=== PATIENT | female | born 1950 | race Caucasian/White ===

== ENCOUNTER 2018-06-09 07:32 | Inpatient (IN) ==
[2018-06-09] MEDS ORDERED: Chlorhexidine Gluconate 2% 1 Pack (2 Cloths) TOPICAL SCH (08:30)
[2018-06-09] MEDS ORDERED: Metoprolol Tartrate 25 MG Tablet PO SCH (08:30)
[2018-06-09] MEDS ORDERED: Lidocaine PF 1% Inj 5 ML Vial ONE (08:42)
[2018-06-09] MEDS ORDERED: Bupivacaine Liposomal PF 1.3% Inj 20 ML Vial ONE (08:42)
[2018-06-09] MEDS ORDERED: Chlorhexidine 4% Topical 120 APPLIC/120 ML Bottle TOPICAL SCH (08:45)
[2018-06-09] MEDS ORDERED: Sodium Chlor 0.9% Inj 80 ML, Bupivacaine Liposo PF 1.3% Inj 20 ML P-ARTICULR SCH ×2 (08:45)
[2018-06-09] MEDS ORDERED: TRANEXAMIC ACID IV.SIG SCH ×2 (09:00→11:35)
[2018-06-09] MEDS ORDERED: SODIUM CHLOR 0.9% IV.SIG SCH ×2 (09:00→11:35)
[2018-06-09] MEDS ORDERED: ceFAZolin 2 GM/NS 100 ML IV; Q8H IV.SIG SCH ×2 (09:00)
[2018-06-09] MEDS ORDERED: Sodium Chlor 0.9% Inj 500 ML IV.SIG SCH (09:00)
[2018-06-09] MEDS ORDERED: Propofol Inj 500 MG/50 ML Vial ONE (09:32)
[2018-06-09] MEDS ORDERED: Bupivacaine/Dextrose 0.75% Inj 2 ML Ampul ONE (09:32)
[2018-06-09] MEDS ORDERED: ceFAZolin 2 GM Premix Inj 2 GM/100 ML BAG IV.SIG ONE (09:57)
[2018-06-09] MEDS ORDERED: Tranexamic Acid Inj 0 MG in Sodium Chlor 0.9% Inj 100 ML IV.SIG ONE (10:17)
[2018-06-09] MEDS ORDERED: Bisacodyl 10 MG Supp RECTAL PRN (10:17)
[2018-06-09] MEDS ORDERED: Zolpidem Tartrate 5 MG Tablet PO PRN (10:17)
[2018-06-09] MEDS ORDERED: Post-op Orders (for Pharmacy) OTHER STA (10:17)
[2018-06-09] MEDS ORDERED: Morphine Inj 4 MG/ML Vial IV.PUSH PRN (10:17)
[2018-06-09] MEDS ORDERED: Aluminum/Magnesium/Simethacone Susp 30 ML UDC PO PRN (10:17)
[2018-06-09] MEDS ORDERED: Acetaminophen 325 MG Tablet PO PRN (10:17)
[2018-06-09] MEDS ORDERED: Sodium Chlor 0.9% Inj 250 ML IV.SIG ONE (12:00)
[2018-06-09] MEDS ORDERED: Phenylephrine/NS 1000 MCG/10ML Syringe IV.PUSH ONE (12:00)
--- NOTE | 2018-06-09 12:07 | P.DCO ---
- Physical Therapy Physical Therapy: Gait training Knee: Total knee, Protocol: Right, Gait training, Full weight bearing Right Lower Extremity Weight Bearing: Weight bearing as tolerated Right Lower Extremity Range of Motion: Active ROM (Active, active assisted and passive range of motion. Range of motion goal is 0 extension to 140 of flexion. Range of motion achieved in the operating room was 0 extension to 150 of flexion.) - Nursing Nursing: Dressing changes Dressing changes: Daily dressing change, Coverderm/Primapore Additional instructions: Do not remove Dermabond Prineo. - Certification Need for Home Health services: I have seen patient Nkechi Alexander on 06/09/18. My clinical findings support the need for the requested home health care services because: Need for Home Health Services: Deconditioned with increased weakness, Limited ability to care for self, High risk of falls Homebound Certification: I certify that my clinical findings support that this patient is homebound because: Homebound Certification: Post-op weakness, Unsteady gait/balance, Unsafe to leave home unassisted
--- NOTE | 2018-06-09 12:15 | P.OP ---
- Preoperative Diagnosis (1) Primary osteoarthritis of right knee - Postoperative Diagnosis (1) Primary osteoarthritis of right knee Date of procedure: 06/09/18 Procedure: Right total knee arthroplasty using Temi Triathlon prosthesis (uncemented). Anesthesia: regional (Adductor canal block), local (With Exparel), spinal Surgeon: Gabino Camacho MD Traffic Coordinator: RENARD Quintero Estimated blood loss (mL): 150 Tourniquet time (min): 0 Pathology: other (Synovial hypertrophy, suprapatellar pouch) Operation and Findings: Indications and Findings: This 67-year-old woman has at least 16 years history of right knee pain progressively worsening since arthroscopic surgery performed in [place] in 2002. This is worsened over time to the point that she is able to walk about 30 minutes in the groceries store only if she is leaning on the cart. She has difficulty ascending and descending stairs and has difficulty standing from position. He has not responded to conservative measures including analgesics, anti-inflammatory agents, activity modification, exercise , intra-articular corticosteroid injections and ambulatory aids. Physical findings showed significant crepitation on range of motion with palpable osteophytes, tenderness on motion and laxity in the joint. X-ray showed severe arthritis down to [id number] in the PA flexion view in both the medial and lateral compartments predominantly on the medial. There were patellofemoral osteophytes as well as medial and lateral osteophytes. Operative findings: There is severe osteoarthritis in the right knee with loss of articular cartilage to eburnated subchondral bone particularly in the medial compartment but also in the lateral and patellofemoral compartments. There are osteophytes. The synovium was hypertrophic in the suprapatellar pouch and medial lateral gutters. There is also some calcific change consistent with chondrocalcinosis. The prosthesis used was a Temi Triathlon prosthesis. The femur was a size 3, cruciate retaining, uncemented. The tibial baseplate was a size 3 Tritanium with a 9 mm X3 polyethylene cruciate retaining spacer. The patella was a size 32 mm asymmetric Tritanium backed. The patient was brought to the clean-air operating suite after administration of a regional anesthetic by adductor canal block. A spinal anesthetic was administered. The position was supine with a small bolster under the hip on the operative side. A pneumatic tourniquet was applied to the upper thigh. The lower extremity was prepped with alcohol, Hibiclens and ChloraPrep and draped in the usual manner with the knee draped free. An appropriate timeout procedure was carried out. An incision was made from about 3 fingerbreadths above the superior medial pole of patella down the tibial tubercle on the medial side. The incision was deepened through the subcutaneous tissue to the retinacular structures which were exposed medially and laterally. A medial retinacular incision was made from the superior medial pole of patella down the tibial tubercle and up into the quadriceps tendon, splitting it longitudinally in the medial one third. The patella was reflected. The infrapatellar fat pad was debulked. The anterior cruciate ligament was excised. Medial and lateral meniscectomies were initiated. Fenestrations were made in the distal femur and proximal tibia for intramedullary referencing guides. The distal femoral cutting guide and jig were assembled for a 5, 8 mm cut. When this was fit into position,the cutting block was stabilized with pins. The jig was removed. The distal femoral cut was completed with the oscillating saw. The sizing guide was positioned in place along Whitesides line and the epicondylar axis and stabilized with pins. The femoral size was determined as noted above. The 4-in-1 cutting block was positioned in place. Anterior and posterior cuts were made followed by posterior and anterior chamfer cuts taking care to prevent injury to ligamentous structures. Osteophytes were trimmed from the distal femur. A bone plug was placed into the fenestration of the distal femur. The proximal tibia was exposed. The medial and lateral meniscectomies were completed. The proximal tibial cutting guide was positioned in place and stabilized with a pin for rotation. The depth of cut was verified with a stylus off the high side. The cutting block was stabilized with pins. The jig was removed. The depth of cut was verified and adjusted appropriately with the use of the spacer block. The proximal tibial cut was made with the oscillating saw taking care to prevent injury to neurovascular and ligamentous structures. Proximal tibial bone was removed. Local anesthetic was administered with Exparel in the posterior capsule. The tibial baseplate trial was positioned in place. After verifying the appropriate size, the base plate trial was positioned in place along with its spacer. The femoral component was impacted into place. The alignment was checked. The tibial baseplate was pinned in place on the tibia. Attention was directed to the patella. The patella drill guide was positioned in place for the appropriate sized patella. Patellar drilling was then carried out. The trial patella was positioned in place. The knee was taken through a range of motion which was easily 0 extension to 150. The patella trial was removed. The femoral drill holes were made. The femoral trials were removed. The tibial spacer was removed. A bone plug was placed into the proximal tibia. The tibial punch was impacted through the proximal tibial punch guide. This was all removed followed by placement of the tibial drill guide. The tibial drill holes were made. The guide was removed. The cut ends of bone were cleaned with pulse lavage. The tibial baseplate was impacted into place and seated appropriately. The spacer was inserted. The the femoral component was impacted into place and seated appropriately. The patella component was seated with the patellar vice and tightened appropriately. The knee was taken through a range of motion which was comparable to the previous range of motion with excellent stability in flexion and extension and appropriate patellofemoral tracking. The remainder of the Exparel was injected throughout the knee as a local anesthetic. Drains were brought out the superior lateral aspect of the suprapatellar pouch. Wound closure commenced using 0 Vicryl interrupted [id number] sutures for the capsular and fascial structures, 2-0 Vicryl interrupted simple sutures with buried knots for the subcutaneous tissues and 4-0 Monocryl, continuous subcuticular closure for the skin. The wound was dressed with Dermabond Prineo followed by a dry sterile dressing. Sterile soft roll with a cooling pad and Chicho bandage from the base of the toes to mid thigh were applied. Patient was transferred from the operating room to the recovery room in satisfactory condition having tolerated procedure well. Counts were correct. Specimens: Suprapatellar synovium. Estimated blood loss: 150 mL
--- NOTE | 2018-06-09 13:35 | P.CONIM ---
History of Present Illness Service: IM Consult date: 06/09/18 Requesting Physician: Gabino Camacho Reason for Consult: co managment Primary Care Provider: No Primary Care Physician Chief Complaint: medical comanagement History of Present Illness: This is a 67-year-old female with history of hypertension and right knee pain from osteoarthritis, did not respond to conservative therapy, admitted for right total knee arthroplasty. Patient seen at the recovery unit, does not have any complaints. Denies any chest pain or shortness of breath. Patient has high blood pressure and takes lisinopril 20 mg daily. She was diagnosed about 1-1/2 years ago. No other medical issues. She is a chronic smoker Family history: Hypertension is prominent in the family, no history of cardiac problems. Review of Systems All other pertinent systems were reviewed and are negative. PMF - History History Provided By: Patient - Medical History Medical History: Medical History (Last Reviewed 06/09/18 @ 15:04 by Alex Zimmer MD) Failure of rotator cuff repair Full dentures Hypertension Smoker Uses contact lenses Wears glasses - Surgical History Surgical History: Surgical History (Last Reviewed 06/09/18 @ 15:04 by Alex Zimmer MD) History of arthroscopy of both knees History of carpal tunnel surgery of left wrist - Tobacco History Second Hand Smoke Exposure: Yes Tobacco Use In Past 30 Days: Yes Smoking Status: Current every day smoker Tobacco Type: Cigarettes - Alcohol History How Often Do You Have a Drink Containing Alcohol: Monthly or less - Substance Use History Substance History: No History of Abuse - Travel History Recent Travel in the [place] Within the Last 8 Weeks: No Recent Travel Out of the Country Within the Last 8 Weeks: No Medications and Allergies Active Medications: Active Medications Acetaminophen (Tylenol) 650 mg PO Q6H PRN PRN Reason: Pain Less Than 3 On Scale Hydrocodone Bitart/Acetaminophen ([place] 7.5/325) 1 tab PO Q4H PRN PRN Reason: PAIN SCALE 4 TO 6 MODERATE Hydrocodone Bitart/Acetaminophen ([place] 7.5/325) 2 tab PO Q6H PRN PRN Reason: PAIN SCALE 7 TO 10 SEVERE Al Hydrox/Mg Hydrox/Simethicone (Mag-Al Plus Susp Liq) 30 ml PO Q6H PRN PRN Reason: INDIGESTION Al Hydroxide/Mg Hydroxide (Milk Of Magnesia Liq) 30 ml PO BID PRN PRN Reason: Mild Constipation Aspirin (Aspirin Chew) 81 mg PO BID [facility] Bisacodyl (Dulcolax Supp) 10 mg RECTAL DAILY PRN PRN Reason: SEVERE CONSITIPATION Chlorhexidine Gluconate (Chlorhexidine 2% Cloth) 3 pack TOPICAL MUSEUM TOUR GUIDE [facility] Stop: 06/12/18 08:17 Last Admin: 06/09/18 08:00 Dose: 3 pack Chlorhexidine Gluconate (Hibiclens 4% Topical) 1 applicatio TOPICAL ONCE [facility] Stop: 06/13/18 08:44 Sodium Chloride 80 ml/ (Bupivacaine Liposome 20 ml) 0 ml P-ARTICULR ONCE [facility] Stop: 06/10/18 08:44 Last Admin: 06/09/18 10:39 Dose: 1 bag Diphenhydramine HCl (Benadryl) 25 mg PO Q6H PRN PRN Reason: ITCHING Cefazolin Sodium 2,000 mg/ (Sodium Chloride) 100 mls @ 200 mls/hr IV.SIG MUSEUM TOUR GUIDE [facility] Stop: 06/12/18 08:59 Tranexamic Acid 421 mg/ Sodium (Chloride) 104.21 mls @ 200 mls/hr IV.SIG ONCE [facility] Stop: 06/10/18 08:59 Last Infusion: 06/09/18 11:01 Dose: Infused Tranexamic Acid 421 mg/ Sodium (Chloride) 104.21 mls @ 200 mls/hr IV.SIG ONCE [facility] Stop: 06/10/18 11:34 Lactated Ringer's (Lr 1000 Ml Inj) 1,000 mls @ 80 mls/hr IV.CONT .[id number] [facility] Cefazolin Sodium 1,000 mg/ (Sodium Chloride) 100 mls @ 200 mls/hr IV.SIG Q6H [facility] Stop: 06/10/18 06:29 Ketorolac Tromethamine (Toradol Inj) 15 mg IV.PUSH Q6H [facility] Stop: 06/11/18 06:01 Lactulose (Lactulose Liq) 30 ml PO DAILY PRN PRN Reason: SEVERE CONSITIPATION Lisinopril (Prinivil) 20 mg PO DAILY [facility] Metoprolol Tartrate (Lopressor) 25 mg PO MUSEUM TOUR GUIDE [facility] Stop: 06/12/18 08:17 Last Admin: 06/09/18 08:29 Dose: Not Given Morphine Sulfate (Morphine Inj) 2 mg IV.PUSH Q3H PRN PRN Reason: BREAKTHROUGH PAIN Ondansetron HCl (Zofran Odt) 4 mg PO Q6H PRN PRN Reason: NAUSEA OR VOMITING Povidone Iodine (Betadine 5% Antisepsis Kit) 1 applicatio EACH NARE MUSEUM TOUR GUIDE [facility] Stop: 06/12/18 08:17 Last Admin: 06/09/18 08:29 Dose: 1 applicatio Senna/Docusate Sodium (Linda-Colace) 1 tab PO BID [facility] Sennosides (Senokot) 17.2 mg PO BID PRN PRN Reason: Moderate Constipation Sodium Chloride (Ns Flush) 2 ml IV.FLUSH BID [facility] Sodium Chloride (Ns Flush) 2 ml IV.FLUSH PRN PRN PRN Reason: FLUSH AFTER USING IV ACCESS Zolpidem Tartrate (Ambien) 5 mg PO HS PRN PRN Reason: INSOMNIA Allergies Allergy/AdvReac Type Severity Reaction Status Date / Time Sulfa (Sulfonamide Allergy Severe Nausea/Vomi Verified 06/09/18 08:21 Antibiotics) ting Home Medications Medication Instructions Recorded Confirmed Type ibuprofen [Advil] 200 mg PO Q4-6H PRN 05/25/18 06/09/18 History lisinopril 20 mg PO DAILY 05/25/18 06/09/18 History Exam Vital signs: Vital Signs 06/09/18 08:33 06/09/18 08:51 06/09/18 09:26 Temperature 98.7 F Pulse Rate 95 H 79 71 Respiratory Rate 18 18 Blood Pressure 151/91 H 127/67 Pulse Oximetry 100 100 100 06/09/18 12:33 06/09/18 12:45 06/09/18 13:00 Temperature 95.8 F L Pulse Rate 76 73 68 Respiratory Rate 16 16 16 Blood Pressure 86/59 L 94/61 L 128/74 Pulse Oximetry 96 96 100 06/09/18 13:15 Temperature 97.4 F L Pulse Rate 69 Respiratory Rate 13 Blood Pressure 131/71 Pulse Oximetry 100 Intake & Output 06/08/18 06/09/18 06/09/18 18:59 06:59 18:59 Intake Total 1700.21 / 1700.21 Output Total 150 / 150 Balance 1550.21 / 1550.21 Weight 42.1 kg Intake: IV 1204.21 / 1204.21 LR 1000 mL Inj 1,000 ML @ 30 1000 / 1000 mls/hr IV.SIG .Q24H [facility] Rx#: [id number] Cyklokapron Inj 421 MG In NS 104.21 / 104.21 Inj 100 ML @ 200 mls/hr IV.SIG ONCE [facility] Rx#:[id number] Ancef 2 GM Premix Inj 2 gm In 100 / 100 100 ml @ 0 mls/hr IV.SIG .STK- [facility] ONE Rx#:[id number] Anesthesia Amount 496 / 496 Output: Estimated Blood Loss 150 / 150 Other: Weight On Admission 42.1 kg Narrative: Not in distress Pupils equal round reactive Moist mucosa Regular rate and rhythm Clear breath sounds Abdomen soft nontender Moves all extremities, no edema Alert awake and oriented 3, no focal deficits. Results - Labs Labs: Laboratory Results - last 24 hr 06/09/18 08:25 Blood Type O Positive Blood Type Recheck Required Antibody Screen Negative Assessment and Plan - Plan This is a 67-year-old female electively admitted for right knee total replacement Right total knee replacement-management per orthopedics, pain control and bowel regimen per orthopedics Hypertension-restart lisinopril, Vasotec as needed DVT prophylaxis: Per primary Thank you for this consult, we will follow along with you.
[2018-06-09] MEDS: Ketorolac Inj 30 MG/ML (IVP) Vial IV.PUSH SCH ×2 (13:46→18:29)
--- NOTE | 2018-06-09 14:19 | XR ---
EXAM DATE: 06/09/2018 2:11 PM EDT AGE/SEX: 67 years / Female INDICATIONS: Post op right knee surgery. CLINICAL DATA: This is the patient's initial encounter. Patient reports that signs and symptoms have been present for 1 day and indicates a pain score of 0/10. MEDICAL/SURGICAL HISTORY: None. None. COMPARISON: No prior exams available for comparison. FINDINGS: Postoperative right total knee replacement. Drain in soft tissues. Normal alignment. CONCLUSION: Postoperative right total knee replacement. Normal alignment. Electronically signed by: Jonatan Amezquita MD 06/09/2018 2:17 PM EDT
[2018-06-09] MEDS ORDERED: *morphine SULFATE 10 MG/ML PERIprocedure ONLY ONE (15:12)
[2018-06-09] MEDS: Senna/Docusate Sodium 8.6/50 MG Tablet PO SCH (21:54)
[2018-06-10] MEDS: Ketorolac Inj 30 MG/ML (IVP) Vial IV.PUSH SCH ×3 (00:25→11:31)
[2018-06-10 05:26] LABS: Hematocrit 27.4 % (35.0-46.0); Hemoglobin 9.6 gm/dL (11.6-15.3)
--- NOTE | 2018-06-10 06:03 | P.PNOP ---
Subjective Interval history: Postop day #1 She is doing well. She has minimal complaints related to the knee at this time. She is happy with her progress to date. Physical therapy reports that the ambulation distance was 50 feet. The range of motion was 0 extension to 70 of flexion. Physical Exam Vital signs: Vital Signs 06/09/18 08:33 06/09/18 08:51 06/09/18 09:26 Temperature 98.7 F Pulse Rate 95 H 79 71 Respiratory Rate 18 18 Blood Pressure 151/91 H 127/67 Pulse Oximetry 100 100 100 06/09/18 12:33 06/09/18 12:45 06/09/18 13:00 Temperature 95.8 F L Pulse Rate 76 73 68 Respiratory Rate 16 16 16 Blood Pressure 86/59 L 94/61 L 128/74 Pulse Oximetry 96 96 100 06/09/18 13:15 06/09/18 13:30 06/09/18 13:45 Temperature 97.4 F L 97.6 F Pulse Rate 69 75 65 Respiratory Rate 13 21 12 Blood Pressure 131/71 134/83 134/81 Pulse Oximetry 100 100 100 06/09/18 14:01 06/09/18 15:00 06/09/18 15:37 Temperature Pulse Rate 65 89 77 Respiratory Rate 15 12 20 Blood Pressure 135/78 157/82 H 128/96 H Pulse Oximetry 100 100 100 06/09/18 16:00 06/09/18 17:00 06/09/18 17:30 Temperature 98.8 F 98.1 F Pulse Rate 72 79 76 Respiratory Rate 16 14 16 Blood Pressure 149/70 H 125/76 135/74 Pulse Oximetry 100 98 96 06/09/18 20:00 06/10/18 00:00 06/10/18 01:30 Temperature 97.8 F 98.3 F Pulse Rate 93 H 73 Respiratory Rate 18 18 16 Blood Pressure 132/62 142/80 H Pulse Oximetry 95 97 06/10/18 04:00 Temperature 98.4 F Pulse Rate 77 Respiratory Rate 16 Blood Pressure 158/78 H Pulse Oximetry 97 Intake & Output 06/09/18 06/09/18 06/10/18 06:59 18:59 06:59 Intake Total 2284.42 / 2284.42 Output Total 570 / 570 90 / 90 Balance 1714.42 / 1714.42 -90 / -90 Weight 42.1 kg 41.73 kg Intake: IV 1668.42 / 1668.42 LR 1000 mL Inj 1,000 ML @ 80 260 / 260 mls/hr IV.CONT .[id number] [facility] Rx# :[id number] LR 1000 mL Inj 1,000 ML @ 30 1000 / 1000 mls/hr IV.SIG .Q24H [facility] Rx#: [id number] Cyklokapron Inj 421 MG In NS 208.42 / 208.42 Inj 100 ML @ 200 mls/hr IV.SIG ONCE [facility] Rx#:[id number] Ancef 2 GM Premix Inj 2 gm In 100 / 100 100 ml @ 0 mls/hr IV.SIG .STK- [facility] Rx#:[id number] Ancef Inj 1,000 MG In NS Inj 100 / 100 100 ML @ 200 mls/hr IV.SIG Q6H [facility] Rx#:[id number] Oral 120 / 120 Anesthesia Amount 496 / 496 Output: Urine 140 / 140 Estimated Blood Loss 150 / 150 Wound Drainage 280 / 280 90 / 90 # 2 Right Knee Hemovac 280 / 280 90 / 90 Other: # Voids 1 Weight On Admission 42.1 kg Narrative: She is resting comfortably, supine in bed, in the CPM. The neurovascular status is intact. The dressing is dry and intact. Results - Labs CBC & Chem 7: 06/10/18 04:15 Laboratory Results - last 24 hr 06/09/18 06/10/18 08:25 04:15 Hgb 9.6 L Hct 27.4 L Blood Type O Positive Blood Type Recheck Required Antibody Screen Negative - Imaging Impressions Knee X-Ray 06/09/18 10:13 CONCLUSION: Postoperative right total knee replacement. Normal alignment. - Procedures Right total knee arthroplasty using Temi Triathlon prosthesis (uncemented) on 06/09/2018. Assessment and Plan - Ortho Post Op Day # 1 - Problem List (1) Status post total right knee replacement not using cement Code(s): Z96.651 - Presence of right artificial knee joint Status: Acute Plan: Continue postop care and PT. - Assessment and Plan Condition: Good. Orthopedically stable. DVT prophylaxis: TEDs, aspirin, sequentials. Discharge plans: Home with home health care. An appointment was scheduled through the office. Prescriptions: [place] 7.5/325; Patient is having significant pain caused by a total knee arthroplasty which will last more than 3 days. Trial of Tylenol has not helped. I believe that it is medically necessary to treat patients pain because it is affecting patients ability to participate in postoperative rehabilitation and perform activities of daily living in a comfortable and efficient manner.
--- NOTE | 2018-06-10 06:47 | P.DS ---
Date of admission: 06/09/18 07:32 Primary care physician: No Primary Care Physician Attending physician on discharge: Gbaino Camacho Anticipated date of discharge: 06/10/18 Brief History from admission: This 67-year-old woman has had long-standing arthritis in her knee which has not responded to conservative measures including anti-inflammatory agents, analgesics, exercise and activity modification. Physical findings showed genu varum with tenderness on range of motion, crepitation, medial laxity. X-rays showed loss of articular cartilage to [id number] there are osteophytes and there was eburnation. DS: Diagnosis - Discharge Diagnosis (1) Status post total right knee replacement not using cement Status: Acute Diagnosis: Principal (2) Primary osteoarthritis of right knee Status: Chronic Diagnosis: Principal DS: Summary Hospital Course: The patient was admitted as noted above. The above noted operative procedure was carried out that day. Preoperatively prophylactic antibiotics were administered Ancef according to protocol. These were continued postoperatively. The patient also received tranexamic acid to help with hemostasis according to protocol. In the postanesthesia care unit a continuous passive motion device was initiated. Also initiated were mechanical methods of DVT prophylaxis in the form of PARESH stockings and sequentials. Physical therapy was initiated on the day of surgery. On postoperative day #1 physical therapy continued. The use of the continuous passive motion device continued. DVT prophylaxis with aspirin 81 mg was initiated at this time. The patient continued physical therapy throughout the hospitalization. The distance walked and range of motion improved throughout the hospitalization. The patient was discharged on postoperative day 1 with the disposition being to home with home health care. An appointment for follow-up was made prior to admission. - Time Spent with Patient Total time spent providing and/or coordinating discharge services: Greater than 30 minutes - Quality: VTE Deep Vein Thrombosis/Pulmonary Embolism Present on Admission: No Exam Vital signs: Vital Signs 06/09/18 08:33 06/09/18 08:51 06/09/18 09:26 Temperature 98.7 F Pulse Rate 95 H 79 71 Respiratory Rate 18 18 Blood Pressure 151/91 H 127/67 Pulse Oximetry 100 100 100 06/09/18 12:33 06/09/18 12:45 06/09/18 13:00 Temperature 95.8 F L Pulse Rate 76 73 68 Respiratory Rate 16 16 16 Blood Pressure 86/59 L 94/61 L 128/74 Pulse Oximetry 96 96 100 06/09/18 13:15 06/09/18 13:30 06/09/18 13:45 Temperature 97.4 F L 97.6 F Pulse Rate 69 75 65 Respiratory Rate 13 21 12 Blood Pressure 131/71 134/83 134/81 Pulse Oximetry 100 100 100 06/09/18 14:01 06/09/18 15:00 06/09/18 15:37 Temperature Pulse Rate 65 89 77 Respiratory Rate 15 12 20 Blood Pressure 135/78 157/82 H 128/96 H Pulse Oximetry 100 100 100 06/09/18 16:00 06/09/18 17:00 06/09/18 17:30 Temperature 98.8 F 98.1 F Pulse Rate 72 79 76 Respiratory Rate 16 14 16 Blood Pressure 149/70 H 125/76 135/74 Pulse Oximetry 100 98 96 06/09/18 20:00 06/10/18 00:00 06/10/18 01:30 Temperature 97.8 F 98.3 F Pulse Rate 93 H 73 Respiratory Rate 18 18 16 Blood Pressure 132/62 142/80 H Pulse Oximetry 95 97 06/10/18 04:00 Temperature 98.4 F Pulse Rate 77 Respiratory Rate 16 Blood Pressure 158/78 H Pulse Oximetry 97 Intake & Output 06/09/18 06/09/18 06/10/18 06:59 18:59 06:59 Intake Total 2284.42 / 2284.42 340 / 340 Output Total 570 / 570 90 / 90 Balance 1714.42 / 1714.42 250 / 250 Weight 42.1 kg 43.6 kg Intake: IV 1668.42 / 1668.42 100 / 100 LR 1000 mL Inj 1,000 ML @ 80 260 / 260 mls/hr IV.CONT .[id number] [facility] Rx# :[id number] LR 1000 mL Inj 1,000 ML @ 30 1000 / 1000 mls/hr IV.SIG .Q24H [facility] Rx#: [id number] Cyklokapron Inj 421 MG In NS 208.42 / 208.42 Inj 100 ML @ 200 mls/hr IV.SIG ONCE [facility] Rx#:[id number] Ancef 2 GM Premix Inj 2 gm In 100 / 100 100 ml @ 0 mls/hr IV.SIG .STK- [facility] Rx#:[id number] Ancef Inj 1,000 MG In NS Inj 100 / 100 100 / 100 100 ML @ 200 mls/hr IV.SIG Q6H [facility] Rx#:[id number] Oral 120 / 120 240 / 240 Anesthesia Amount 496 / 496 Output: Urine 140 / 140 Estimated Blood Loss 150 / 150 Wound Drainage 280 / 280 90 / 90 # 2 Right Knee Hemovac 280 / 280 90 / 90 Other: # Voids 1 1 # Bowel Movements 0 Weight On Admission 42.1 kg Narrative: She is resting comfortably, supine in bed, in the CPM. The neurovascular status is intact. The dressing is dry and intact. Results Procedures completed during hospitalization: Right total knee arthroplasty using Temi Triathlon prosthesis (uncemented) on 06/09/2018. Pending studies at discharge: Pending at discharge 06/09/18 13:52 Surgical [PTH] Routine Labs on day of discharge: Labs from last 24 hours 06/10/18 06/09/18 04:15 08:25 Hgb 9.6 L Hct 27.4 L Blood Type O Positive Blood Type Recheck Required Antibody Screen Negative - Impressions ITS Impressions Knee X-Ray 06/09/18 10:13 CONCLUSION: Postoperative right total knee replacement. Normal alignment. Discharge Plan - Discharge Disposition Patient Disposition: /Home Health Service - Discharge Condition Condition: Stable - Discharge Order Discharge Orders: Discharge Order (Routine); Ordered 06/10/18 Ordered By: Gabino Camacho - Discharge Details Anticipated Discharge Date: 06/10/18 - Physicians Team Primary Care Provider: Primary Tonja Green Attending Provider: Gabino Camacho Other Providers: Alex Zimmer MD ; [facility], - Rxs /Orders / Referrals /Forms Prescriptions: Continue ibuprofen [Advil] 200 mg Tablet 200 mg PO Q4-6H PRN (Reason: Pain) lisinopril 20 mg Tablet 20 mg PO DAILY Referrals: Gabino Camacho MD [Physician] - See Instructions Primary Care Tonja Kim [Primary Care Provider] - See Instructions - Discharge Instructions Patient Printed Instructions: Knee Replacement (DC) Additional Instructions: Your Health Problems: Goals to Promote Your Health: * To prevent worsening of your condition * To maintain your health at the optimal level Directions to Meet Your Goals: * Take your medications as prescribed * Follow your dietary instruction * Follow activity as directed * Keep your appointments as scheduled * Take your immunizations and boosters as scheduled * If your symptoms worsen call your PCP * If no PCP go to Urgent Care or Emergency Room Smoking is dangerous to your health. Avoid second hand smoke. You may reach the 24-hour crisis hotline for domestic abuse at 9-915-904- 2124.Keep your followup appointment with Dr. Camacho. Keep surgical area dry and intact. Discharge Care Plan Goals for Total Knee Replacement You have undergone knee replacement surgery. Your doctor replaced your painful joint with an artificial joint to relieve pain and restore movement. Here are some goals to help you heal well. Directions to Meet your Goals: 1. Activity & Exercises: * Take pain medicine as directed by your doctor. * Sit in chairs with arms. The arms make it easier for you to stand up or sit down. * Dont sit for more than 30 to 45 minutes at one time. * Nap if you are tired, but dont stay in bed all day. * Sleep with a pillow under your ankle, not your knee. Be sure to change the position of your leg during the night. * Wear the support stockings you were given in the hospital as directed by your surgeon. 2. Prevent Falls/Injury: The neri to successful recovery is movement with walking and exercising your knee as directed by your doctor. * Arrange your household to keep the items you need handy. Keep everything else out of the way. * Remove items that may cause you to fall, such as throw rugs and electrical cords. * Use nonslip bath mats, grab bars, an elevated toilet seat, and a shower chair in your bathroom * Sit on a shower stool or chair when you shower to keep from falling. * Until your balance, flexibility, and strength improve, use a cane, crutches, a walker, handrails, or someone to help you. * Keep your hands free by using a backpack, gloria pack, apron, or pockets to carry things * Walk up and down stairs with support. Try one step at a time. Use the railing if possible. * Dont drive until your doctor says its OK. * Dont drive while you are taking opioid pain medicine. 3. Precautions: * Prevent infection. Any infection will need to be treated immediately. Call your doctor right away if you think you might have an infection. * Tell your dentist that you have an artificial joint and take antibiotics as prescribed before any dental work. * Tell all your healthcare providers about your artificial joint before any medical procedure. * Maintain a healthy weight. Get help to lose any extra pounds. Added body weight puts stress on the knee. * Your medications may include blood-thinning medicine to prevent blood clots or antibiotics to prevent infection-prevent any falls or cuts 4. Incision Care: * Prevent infection by washing your hands often. If an infection occurs, it will need to be treated right away. * Call your doctor right away if you think you may have an infection. Symptoms include a fever or an incision that leaks white, green, or yellow fluid. * Don't soak your incision in water until your doctor says its OK. This means no hot tubs, bathtubs, or swimming pools. * Follow your doctor's instructions for changing the dressing. * Dont rub the incision, or apply creams or lotions to it. * If you notice any redness or drainage around the bandage site, contact your surgeon's office immediately. 5. Follow-Up: Do Not miss your follow-up appointment. Keep up with all your appointments and yearly check ups When to call your doctor: Call your doctor right away if you have: Fever of 100.4F (38C) or higher, or as directed by your doctor Shaking chills Stiffness, or inability to move the knee Increased swelling in your leg Increased redness, tenderness, or swelling in or around the knee incision Drainage from the knee incision Increased knee pain Call 911: Call 911 right away if you have: Chest pain Shortness of breath Any pain or tenderness in your calf RX FOR [facility] SENT HOME WITH PATIENT.
[2018-06-10] MEDS ORDERED: Lisinopril 20 MG Tablet PO SCH (09:00)
[2018-06-10] MEDS: Senna/Docusate Sodium 8.6/50 MG Tablet PO SCH (09:08)
[2018-06-10 13:12] VITALS: BP 136/66; PULSE 96; RESP 20; TEMP 98.5; O2SAT 98
== END 2018-06-10 15:30 | disposition home health service (06) ==
LOC: HSDI 07:32 → N06 17:21
PROVIDERS: ADMIT Orthopaedic Surgery; ATTEND Orthopaedic Surgery